=== PATIENT | male | born 1975 | race African-American/Black ===

== ENCOUNTER 2020-06-30 11:30 | Inpatient (IN) | payer OTHER ==
[~2020-06-30] VITALS: Ht 175.3 cm; Wt 87.5 kg
[2020-06-30] MEDS ORDERED: DiphenhydrAMINE HCL 50 MG/ML VIAL ONE (11:35)
[2020-06-30] MEDS ORDERED: HALOPERIDOL LACTATE 5 MG/ML VIAL ONE (11:35)
[2020-06-30] MEDS ORDERED: LORazepam 2 MG/ML VIAL ONE (11:35)
[2020-06-30] MEDS ORDERED: LORazepam 2 MG/ML VIAL IM ONE ×2 (11:45→14:15)
[2020-06-30] MEDS ORDERED: DiphenhydrAMINE HCL 50 MG/ML VIAL IM ONE (11:45)
[2020-06-30] MEDS ORDERED: HALOPERIDOL LACTATE 5 MG/ML VIAL IM ONE ×2 (11:45→14:15)
[2020-06-30 13:08] LABS: BASOPHILS % (AUTO) 0.3 % (0.0-2.0); EOSINOPHILS % (AUTO) 0.1 % (1.0-6.0); HEMATOCRIT 36.7 % (41-53); HEMOGLOBIN 11.6 g/dL (13.5-17.5); LYMPHOCYTES # (AUTO) 0.9 K/uL (1.0-4.8); LYMPHOCYTES % (AUTO) 9.6 % (22.0-44.0); MEAN CORPUSCULAR HEMOGLOBIN 23.2 pg (26.0-34.0); MEAN CORPUSCULAR HGB CONC 31.5 G/dL (31.0-37.0); MEAN CORPUSCULAR VOLUME 74 fL (80-100); MONOCYTES # (AUTO) 0.8 K/uL (0.1-1.0); MONOCYTES % (AUTO) 9.3 % (2.0-9.0); NEUTROPHILS # (AUTO) 7.4 K/uL (1.8-7.7); NEUTROPHILS % (AUTO) 80.7 % (40.0-70.0); PLATELET COUNT (AUTO) 172 K/uL (150-450); RED BLOOD CELL COUNT(AUTO) 4.99 MIL/uL (4.50-5.90); RED CELL DISTRIBUTION WIDTH 18.1 % (11.5-14.5)
[2020-06-30 13:17] LABS: ANION GAP 21 mmol/L (8-16); CALCIUM, TOTAL 9.8 mg/dL (8.8-10.5); CARBON DIOXIDE 20 mmol/L (22-29); CHLORIDE 102 mmol/L (98-107); CREATININE 1.66 mg/dL (0.60-1.30); GLOMERULAR FILTR. RATE CALC 55 mL/min (>60); GLUCOSE,RANDOM 103 mg/dL (70-110); POTASSIUM 3.1 mmol/L (3.5-5.1); SODIUM SERUM 143 mmol/L (136-145); UREA NITROGEN, BLOOD 22 mg/dL (7-18)
[2020-06-30 13:30] LABS: COVID AG,FIA SOURCE NASOPHARYNGEAL
[2020-06-30 13:42] LABS: ALANINE AMINOTRANSFERASE 39 U/L (12-78); ALBUMIN 4.8 g/dL (3.4-5.0); ALKALINE PHOSPHATASE 80 U/L (46-116); ASPARTATE AMINOTRANSFERASE 117 U/L (15-37); BILIRUBIN,TOTAL 1.2 mg/dL (0.1-1.0); TOTAL PROTEIN, SERUM 8.9 g/dL (6.4-8.2)
[2020-06-30 13:43] LABS: CREATINE KINASE, TOTAL ONLY 1812 U/L (39-308)
[2020-06-30] MEDS ORDERED: SODIUM CHLORIDE 0.9% 2,000 ML IV ONE (14:00)
[2020-06-30] MEDS ORDERED: POTASSIUM CHLORIDE 10% 40 MEQ/30 ML LIQUID UDCUP PO ONE (14:00)
[2020-06-30] MEDS ORDERED: ONDANSETRON HCL 4 MG/2 ML VIAL IVP PRN ×2 (14:15→15:15)
[2020-06-30] MEDS ORDERED: ACETAMINOPHEN 325 MG TABLET PO PRN ×2 (14:15→15:15)
[2020-06-30] MEDS ORDERED: 0.9% SODIUM CHLORIDE 10 ML SYRINGE IVP PRN ×2 (14:15→15:15)
[2020-06-30] MEDS: FOLIC ACID 1 MG TABLET PO SCH (15:00)
[2020-06-30] MEDS: MULTIVITAMINS WITH IRON TABLET PO SCH (15:00)
[2020-06-30] MEDS: THIAMINE 100 MG TABLET PO SCH (15:00)
[2020-06-30] MEDS ORDERED: IPRATROPIUM BROMIDE 0.5 MG/2.5 ML NEB SOLUTION NEB PRN (15:15)
[2020-06-30] MEDS ORDERED: ALBUTEROL SULFATE 2.5 MG/0.5 ML NEB SOLUTION NEB PRN (15:15)
[2020-06-30] MEDS ORDERED: BISACODYL 10 MG RECTAL RECTAL SUPPOSITORY PR PRN (15:15)
[2020-06-30] MEDS: PANTOPRAZOLE SODIUM 40 MG DR TABLET PO SCH (15:15)
[2020-06-30] MEDS ORDERED: DOCUSATE SODIUM 100 MG CAPSULE PO PRN (15:15)
[2020-06-30] MEDS: SODIUM CHLORIDE 0.9% 1,000 ML IV SCH (17:06)
[2020-06-30 18:29] VITALS: BP 123/74
[2020-06-30 19:47] VITALS: BP 149/76
[2020-06-30 20:49] LABS: % IRON SATURATION 17.5 % (30-44)
[2020-06-30] MEDS ORDERED: RisperiDONE 1 MG TABLET PO ONE (21:00)
[2020-07-01 00:34] VITALS: BP 107/60
[2020-07-01] MEDS: SODIUM CHLORIDE 0.9% 1,000 ML IV SCH ×3 (03:40→19:01)
[2020-07-01 05:44] VITALS: BP 116/58
[2020-07-01 07:49] LABS: BASOPHILS % (AUTO) 0.2 % (0.0-2.0); EOSINOPHILS % (AUTO) 4.2 % (1.0-6.0); HEMOGLOBIN 9.6 g/dL (13.5-17.5); LYMPHOCYTES # (AUTO) 1.5 K/uL (1.0-4.8); LYMPHOCYTES % (AUTO) 29.4 % (22.0-44.0); MEAN CORPUSCULAR HEMOGLOBIN 23.4 pg (26.0-34.0); MEAN CORPUSCULAR VOLUME 76 fL (80-100); MONOCYTES # (AUTO) 0.5 K/uL (0.1-1.0); MONOCYTES % (AUTO) 10.1 % (2.0-9.0); NEUTROPHILS # (AUTO) 2.9 K/uL (1.8-7.7); NEUTROPHILS % (AUTO) 56.1 % (40.0-70.0); PLATELET COUNT (AUTO) 132 K/uL (150-450); RED BLOOD CELL COUNT(AUTO) 4.11 MIL/uL (4.50-5.90); RED CELL DISTRIBUTION WIDTH 18.6 % (11.5-14.5)
[2020-07-01 07:59] VITALS: BP 114/63
[2020-07-01 08:38] LABS: ALANINE AMINOTRANSFERASE 40 U/L (12-78); ALBUMIN 3.4 g/dL (3.4-5.0); ALKALINE PHOSPHATASE 63 U/L (46-116); ANION GAP 13 mmol/L (8-16); ASPARTATE AMINOTRANSFERASE 135 U/L (15-37); CALCIUM, TOTAL 8.2 mg/dL (8.8-10.5); CARBON DIOXIDE 21 mmol/L (22-29); CHLORIDE 110 mmol/L (98-107); CREATININE 1.03 mg/dL (0.60-1.30); GLOMERULAR FILTR. RATE CALC > 60 mL/min (>60); GLUCOSE,RANDOM 75 mg/dL (70-110); POTASSIUM 3.8 mmol/L (3.5-5.1); SODIUM SERUM 144 mmol/L (136-145); TOTAL PROTEIN, SERUM 6.7 g/dL (6.4-8.2); UREA NITROGEN, BLOOD 14 mg/dL (7-18)
[2020-07-01 08:39] LABS: CREATINE KINASE, TOTAL ONLY 1899 U/L (39-308)
[2020-07-01] MEDS: THIAMINE 100 MG TABLET PO SCH (09:14)
[2020-07-01] MEDS: PANTOPRAZOLE SODIUM 40 MG DR TABLET PO SCH (09:14)
[2020-07-01] MEDS: FOLIC ACID 1 MG TABLET PO SCH (09:14)
[2020-07-01] MEDS: MULTIVITAMINS WITH IRON TABLET PO SCH (09:14)
[2020-07-01] MEDS: FERROUS SULFATE 325 MG EC TABLET PO SCH ×2 (13:49→17:53)
[2020-07-01 16:34] VITALS: BP 107/56
[2020-07-01] MEDS: ARIPiprazole 15 MG TABLET PO SCH (16:55)
[2020-07-01 19:29] VITALS: BP 96/54
[2020-07-01] MEDS: RisperiDONE 2 MG TABLET PO SCH (20:41)
[2020-07-01] MEDS: DOCUSATE SODIUM 100 MG CAPSULE PO SCH ×2 (20:41→20:44)
[2020-07-01 22:25] LABS: APPEARANCE,URINE CLEAR (CLEAR); BILIRUBIN,URINE NEGATIVE (NEGATIVE); GLUCOSE, URINE (UA) NEGATIVE (NEGATIVE); KETONES,URINE 15 mg/dL (NEGATIVE); LEUKOCYTE ESTERASE ,URINE NEGATIVE (NEGATIVE); NITRATE,URINE NEGATIVE (NEGATIVE); OCCULT BLOOD,URINE NEGATIVE (NEGATIVE); PH,URINE 5.5 (5.0-8.0); PROTEIN,URINE POS 1+ (NEGATIVE); UROBILINOGEN,URINE 0.2 mg/dL (<=1.0)
[2020-07-01 22:36] LABS: AMPHET/METH SCREEN,URINE POSITIVE (NEGATIVE); BARBITURATE SCREEN, URINE NEGATIVE (NEGATIVE); BENZODIAZEPINES SCREEN,URINE NEGATIVE (NEGATIVE); CANNABINOID SCREEN,URINE POSITIVE (NEGATIVE); COCAINE SCREEN,URINE NEGATIVE (NEGATIVE); METHADONE SCREEN, URINE NEGATIVE (NEGATIVE); OPIATE SCREEN,URINE NEGATIVE (NEGATIVE); PHENCYCLIDINE SCREEN,URINE NEGATIVE (NEGATIVE)
[2020-07-01 22:46] LABS: BACTERIA,URINE None Seen /HPF (None Seen); CALCIUM OXALATE CRYSTALS,UR Rare /LPF (None Seen); RBC,URINE None Seen /HPF (0-2); SQUAMOUS EPITHELIAL CELL,UR Rare /LPF (None Seen); WBC,URINE 0-2 /HPF (0-5)
[2020-07-01 23:40] VITALS: BP 115/53
[2020-07-02] MEDS: SODIUM CHLORIDE 0.9% 1,000 ML IV SCH ×2 (03:01→20:26)
[2020-07-02 03:53] VITALS: BP 119/67
[2020-07-02 07:33] VITALS: BP 116/76
[2020-07-02] MEDS: FOLIC ACID 1 MG TABLET PO SCH (07:41)
[2020-07-02] MEDS: THIAMINE 100 MG TABLET PO SCH (07:41)
[2020-07-02] MEDS: ARIPiprazole 15 MG TABLET PO SCH (07:41)
[2020-07-02] MEDS: DOCUSATE SODIUM 100 MG CAPSULE PO SCH ×2 (07:41→20:26)
[2020-07-02] MEDS: MULTIVITAMINS WITH IRON TABLET PO SCH (07:41)
[2020-07-02] MEDS: PANTOPRAZOLE SODIUM 40 MG DR TABLET PO SCH (07:41)
[2020-07-02] MEDS: FERROUS SULFATE 325 MG EC TABLET PO SCH (07:42)
[2020-07-02 10:37] LABS: BASOPHILS % (AUTO) 0.4 % (0.0-2.0); EOSINOPHILS % (AUTO) 5.1 % (1.0-6.0); HEMATOCRIT 32.2 % (41-53); LYMPHOCYTES # (AUTO) 1.5 K/uL (1.0-4.8); LYMPHOCYTES % (AUTO) 26.2 % (22.0-44.0); MEAN CORPUSCULAR HEMOGLOBIN 23.2 pg (26.0-34.0); MEAN CORPUSCULAR HGB CONC 30.9 G/dL (31.0-37.0); MEAN CORPUSCULAR VOLUME 75 fL (80-100); MONOCYTES # (AUTO) 0.5 K/uL (0.1-1.0); MONOCYTES % (AUTO) 8.6 % (2.0-9.0); NEUTROPHILS # (AUTO) 3.5 K/uL (1.8-7.7); NEUTROPHILS % (AUTO) 59.7 % (40.0-70.0); PLATELET COUNT (AUTO) 146 K/uL (150-450); RED BLOOD CELL COUNT(AUTO) 4.29 MIL/uL (4.50-5.90); RED CELL DISTRIBUTION WIDTH 18.5 % (11.5-14.5)
[2020-07-02 11:10] LABS: ALANINE AMINOTRANSFERASE 44 U/L (12-78); ALBUMIN 3.4 g/dL (3.4-5.0); ALKALINE PHOSPHATASE 66 U/L (46-116); ANION GAP 8 mmol/L (8-16); ASPARTATE AMINOTRANSFERASE 102 U/L (15-37); BILIRUBIN,TOTAL 0.4 mg/dL (0.1-1.0); CALCIUM, TOTAL 8.9 mg/dL (8.8-10.5); CARBON DIOXIDE 26 mmol/L (22-29); CHLORIDE 108 mmol/L (98-107); CREATININE 1.06 mg/dL (0.60-1.30); GLOMERULAR FILTR. RATE CALC > 60 mL/min (>60); GLUCOSE,RANDOM 98 mg/dL (70-110); POTASSIUM 3.9 mmol/L (3.5-5.1); SODIUM SERUM 142 mmol/L (136-145); TOTAL PROTEIN, SERUM 6.8 g/dL (6.4-8.2); UREA NITROGEN, BLOOD 8 mg/dL (7-18)
[2020-07-02 11:11] LABS: CREATINE KINASE, TOTAL ONLY 1230 U/L (39-308)
[2020-07-02 16:54] VITALS: BP 135/85
[2020-07-02 20:00] VITALS: BP 120/79
[2020-07-02] MEDS: RisperiDONE 2 MG TABLET PO SCH (20:26)
[2020-07-03] VITALS: BP 134/76
[2020-07-03 05:00] VITALS: BP 137/83
[2020-07-03] MEDS: SODIUM CHLORIDE 0.9% 1,000 ML IV SCH ×2 (06:35→11:01)
[2020-07-03 06:55] LABS: BASOPHILS % (AUTO) 0.5 % (0.0-2.0); EOSINOPHILS % (AUTO) 8.4 % (1.0-6.0); HEMATOCRIT 30.5 % (41-53); HEMOGLOBIN 9.4 g/dL (13.5-17.5); LYMPHOCYTES # (AUTO) 1.9 K/uL (1.0-4.8); LYMPHOCYTES % (AUTO) 43.5 % (22.0-44.0); MEAN CORPUSCULAR HEMOGLOBIN 23.6 pg (26.0-34.0); MEAN CORPUSCULAR VOLUME 76 fL (80-100); MONOCYTES # (AUTO) 0.4 K/uL (0.1-1.0); MONOCYTES % (AUTO) 9.8 % (2.0-9.0); NEUTROPHILS # (AUTO) 1.7 K/uL (1.8-7.7); NEUTROPHILS % (AUTO) 37.8 % (40.0-70.0); PLATELET COUNT (AUTO) 136 K/uL (150-450); RED CELL DISTRIBUTION WIDTH 18.3 % (11.5-14.5)
[2020-07-03 07:23] VITALS: BP 128/76
[2020-07-03 07:47] LABS: ALANINE AMINOTRANSFERASE 42 U/L (12-78); ALBUMIN 3.1 g/dL (3.4-5.0); ALKALINE PHOSPHATASE 55 U/L (46-116); ANION GAP 9 mmol/L (8-16); ASPARTATE AMINOTRANSFERASE 64 U/L (15-37); BILIRUBIN,TOTAL 0.3 mg/dL (0.1-1.0); CALCIUM, TOTAL 8.5 mg/dL (8.8-10.5); CARBON DIOXIDE 25 mmol/L (22-29); CHLORIDE 104 mmol/L (98-107); CREATINE KINASE, TOTAL ONLY 755 U/L (39-308); GLOMERULAR FILTR. RATE CALC > 60 mL/min (>60); GLUCOSE,RANDOM 85 mg/dL (70-110); POTASSIUM 3.8 mmol/L (3.5-5.1); SODIUM SERUM 138 mmol/L (136-145); TOTAL PROTEIN, SERUM 6.4 g/dL (6.4-8.2); UREA NITROGEN, BLOOD 8 mg/dL (7-18)
[2020-07-03] MEDS: FERROUS SULFATE 325 MG EC TABLET PO SCH (08:23)
[2020-07-03] MEDS: PANTOPRAZOLE SODIUM 40 MG DR TABLET PO SCH (08:23)
[2020-07-03] MEDS: THIAMINE 100 MG TABLET PO SCH (08:23)
[2020-07-03] MEDS: MULTIVITAMINS WITH IRON TABLET PO SCH (08:23)
[2020-07-03] MEDS: FOLIC ACID 1 MG TABLET PO SCH (08:23)
[2020-07-03] MEDS: ARIPiprazole 15 MG TABLET PO SCH (08:23)
[2020-07-03] MEDS: DOCUSATE SODIUM 100 MG CAPSULE PO SCH (08:24)
[2020-07-03] MEDS ORDERED: THIA100T80 PO (11:34)
[2020-07-03] MEDS ORDERED: DOCU-270 PO (11:35)
[2020-07-03] MEDS ORDERED: FERR-89 PO (11:35)
[2020-07-03] MEDS ORDERED: ARIP15TA27 PO (11:35)
[2020-07-03] MEDS ORDERED: MULT-1203 PO (11:36)
[2020-07-03] MEDS ORDERED: FOLI-130 PO (11:36)
[2020-07-03] MEDS ORDERED: RISP2TAB45 PO (11:37)
[2020-08-26] MEDS ORDERED: ARIP15TA27 PO (09:32)
== END 2020-07-03 12:00 | disposition home or self-care (01) | DRG 52 ==
LOC: EMS 11:32 → 6N 15:04
PROVIDERS: ADMIT Internal Medicine; ATTEND Internal Medicine
DX: G93.40 Encephalopathy, unspecified (principal); F20.0 Paranoid schizophrenia; F15.10 Other stimulant abuse, uncomplicated; E87.6 Hypokalemia; E86.0 Dehydration; Z20.822 Contact with and (suspected) exposure to COVID-19; N17.9 Acute kidney failure, unspecified; M62.82 Rhabdomyolysis; D50.9 Iron deficiency anemia, unspecified; E87.2 Acidosis; F17.200 Nicotine dependence, unspecified, uncomplicated
CPT/HCPCS: 71045; 80053; 80074; 81001; 82140; 82270; 82271; 82550; 82728; 83540; 83550; 83605; 83880; 84145; 85025; 99291; G0378; G0480; J1200; J1630; J2060; J7030; 36415-L1; 36415-TC

== ENCOUNTER 2020-08-20 16:18 | Inpatient (IN) | payer MEDICAID ==
[~2020-08-20] VITALS: Ht 152.4 cm; Wt 78.6 kg
[~2020-08-20 16:18] MED LIST: ARIP15TA2 PO; DOCU-275 PO; FERR-89 PO; FOLI-130 PO; MULT-1203 PO; RISP2TAB45 PO; THIA100T80 PO
[2020-08-21] MEDS ORDERED: ZOLPIDEM TARTRATE 10 MG TABLET PO PRN (00:30)
[2020-08-21] MEDS ORDERED: HALOPERIDOL 5 MG TABLET PO PRN (00:30)
[2020-08-21] MEDS ORDERED: LORazepam 2 MG TABLET PO PRN (00:30)
[2020-08-21 01:41] VITALS: BP 119/46
[2020-08-21 08:18] VITALS: BP 137/90
[2020-08-21] MEDS: ARIPiprazole 15 MG TABLET PO SCH (12:24)
[2020-08-21] MEDS ORDERED: MAGNESIUM HYDROXIDE SUSPENSION 30 ML UDCUP PO PRN (15:30)
[2020-08-21] MEDS ORDERED: CloNIDine HCL 0.1 MG TABLET PO PRN (15:30)
[2020-08-21] MEDS ORDERED: PETROLATUM,WHITE 28 GM JELLY TP PRN (15:30)
[2020-08-21] MEDS ORDERED: IBUPROFEN 400 MG TABLET PO PRN (15:30)
[2020-08-21] MEDS ORDERED: ACETAMINOPHEN 325 MG TABLET PO PRN (15:30)
[2020-08-21] MEDS ORDERED: DOCUSATE SODIUM 100 MG CAPSULE PO PRN (15:30)
[2020-08-21] MEDS ORDERED: GuaiFENesin/D-METHORPHAN [SUGAR-FREE] 200-20MG/10 ML SYRUP UDCUP PO PRN (15:30)
[2020-08-21] MEDS ORDERED: ALBUTEROL SULFATE HFA 90 MCG/PUFF 8 GM INHALER IH PRN (15:30)
[2020-08-21] MEDS ORDERED: ONDANSETRON HCL 4 MG TABLET PO PRN (15:30)
[2020-08-21] MEDS ORDERED: NICOTINE 14 MG/24 HOUR PATCH TD PRN (15:30)
[2020-08-21] MEDS ORDERED: MAG HYDROX/AL HYDROX/SIMETH ES 30 ML SUSPENSION UDCUP PO PRN (15:30)
[2020-08-21] MEDS ORDERED: LOPERAMIDE HCL 2 MG CAPSULE PO PRN (15:30)
[2020-08-21 16:13] VITALS: BP 135/88
[2020-08-21] MEDS ORDERED: QUEtiapine FUMARATE 100 MG TABLET PO PRN (16:30)
[2020-08-21] MEDS: DOCUSATE SODIUM 100 MG CAPSULE PO SCH (16:39)
[2020-08-21] MEDS: FERROUS SULFATE 325 MG EC TABLET PO SCH (16:39)
[2020-08-21] MEDS ORDERED: LORazepam 2 MG/ML VIAL ONE (17:56)
[2020-08-21] MEDS ORDERED: ChlorproMAZINE HCL 50 MG/2 ML AMP ONE (17:57)
[2020-08-21] MEDS ORDERED: DiphenhydrAMINE HCL 50 MG/ML VIAL ONE (17:57)
[2020-08-21] MEDS ORDERED: ChlorproMAZINE HCL 50 MG/2 ML AMP IM ONE (18:00)
[2020-08-21] MEDS ORDERED: DiphenhydrAMINE HCL 50 MG/ML VIAL IM ONE (18:00)
[2020-08-21] MEDS ORDERED: LORazepam 2 MG/ML VIAL IM ONE (18:00)
[2020-08-22 02:14] VITALS: BP 134/83
[2020-08-22] MEDS: FERROUS SULFATE 325 MG EC TABLET PO SCH ×3 (07:13→16:45)
[2020-08-22] MEDS: ARIPiprazole 15 MG TABLET PO SCH (08:19)
[2020-08-22] MEDS: THIAMINE 100 MG TABLET PO SCH (08:19)
[2020-08-22] MEDS: FOLIC ACID 1 MG TABLET PO SCH (08:19)
[2020-08-22] MEDS: DOCUSATE SODIUM 100 MG CAPSULE PO SCH ×2 (08:19→16:45)
[2020-08-22 16:14] VITALS: BP 119/69
[2020-08-23 00:13] VITALS: BP 130/75
[2020-08-23] MEDS: FERROUS SULFATE 325 MG EC TABLET PO SCH ×3 (06:37→15:59)
[2020-08-23 08:11] VITALS: BP 131/75
[2020-08-23] MEDS: THIAMINE 100 MG TABLET PO SCH (08:22)
[2020-08-23] MEDS: DOCUSATE SODIUM 100 MG CAPSULE PO SCH ×2 (08:22→15:59)
[2020-08-23] MEDS: ARIPiprazole 15 MG TABLET PO SCH (08:22)
[2020-08-23] MEDS: FOLIC ACID 1 MG TABLET PO SCH (08:22)
[2020-08-23 16:38] VITALS: BP 109/80
[2020-08-24 06:23] VITALS: BP 121/72
[2020-08-24] MEDS: FERROUS SULFATE 325 MG EC TABLET PO SCH ×3 (06:43→16:37)
[2020-08-24 08:10] LABS: BASOPHILS % (AUTO) 0.5 % (0.0-2.0); EOSINOPHILS % (AUTO) 6.6 % (1.0-6.0); HEMATOCRIT 35.6 % (41-53); HEMOGLOBIN 11.2 g/dL (13.5-17.5); LYMPHOCYTES # (AUTO) 1.9 K/uL (1.0-4.8); LYMPHOCYTES % (AUTO) 40.1 % (22.0-44.0); MEAN CORPUSCULAR HEMOGLOBIN 24.5 pg (26.0-34.0); MEAN CORPUSCULAR HGB CONC 31.5 G/dL (31.0-37.0); MEAN CORPUSCULAR VOLUME 78 fL (80-100); MONOCYTES # (AUTO) 0.4 K/uL (0.1-1.0); MONOCYTES % (AUTO) 9.5 % (2.0-9.0); NEUTROPHILS % (AUTO) 43.3 % (40.0-70.0); PLATELET COUNT (AUTO) 142 K/uL (150-450); RED BLOOD CELL COUNT(AUTO) 4.57 MIL/uL (4.50-5.90); RED CELL DISTRIBUTION WIDTH 18.9 % (11.5-14.5)
[2020-08-24] MEDS: ARIPiprazole 15 MG TABLET PO SCH (08:14)
[2020-08-24] MEDS: FOLIC ACID 1 MG TABLET PO SCH (08:14)
[2020-08-24] MEDS: THIAMINE 100 MG TABLET PO SCH (08:14)
[2020-08-24] MEDS: DOCUSATE SODIUM 100 MG CAPSULE PO SCH ×2 (08:14→16:37)
[2020-08-24 08:15] VITALS: BP 108/60
[2020-08-24 08:23] LABS: HEMOGLOBIN A1C 5.4 % (3.8-5.6)
[2020-08-24 08:33] LABS: ALANINE AMINOTRANSFERASE 22 U/L (12-78); ALBUMIN 3.4 g/dL (3.4-5.0); ALKALINE PHOSPHATASE 67 U/L (46-116); ANION GAP 10 mmol/L (8-16); ASPARTATE AMINOTRANSFERASE 26 U/L (15-37); BILIRUBIN,TOTAL 0.3 mg/dL (0.1-1.0); CALCIUM, TOTAL 8.8 mg/dL (8.8-10.5); CARBON DIOXIDE 26 mmol/L (22-29); CHLORIDE 102 mmol/L (98-107); CHOL/HDL RATIO 5.2 (4.2-7.3); CHOLESTEROL 181 mg/dL (131-200); CREATININE 0.99 mg/dL (0.60-1.30); FREE T4 (FREE THYROXINE) 0.98 ng/dL (0.76-1.46); GLOMERULAR FILTR. RATE CALC > 60 mL/min (>60); GLUCOSE,RANDOM 96 mg/dL (70-110); HDL CHOLESTEROL 35 mg/dL (40-60); LDL CHOL (CALC.) 87 mg/dL (0-130); POTASSIUM 3.8 mmol/L (3.5-5.1); SODIUM SERUM 138 mmol/L (136-145); THYROID STIMULATING HORMONE 0.23 uIU/mL (0.36-3.74); TRIGLYCERIDES 295 mg/dL (15-150); UREA NITROGEN, BLOOD 13 mg/dL (7-18)
[2020-08-24 16:12] VITALS: BP 114/74
[2020-08-25 06:26] VITALS: BP 116/63
[2020-08-25] MEDS: FERROUS SULFATE 325 MG EC TABLET PO SCH ×3 (06:42→15:59)
[2020-08-25 08:32] LABS: % IRON SATURATION 20.2 % (30-44)
[2020-08-25] MEDS: THIAMINE 100 MG TABLET PO SCH (09:01)
[2020-08-25] MEDS: FOLIC ACID 1 MG TABLET PO SCH (09:01)
[2020-08-25] MEDS: ARIPiprazole 15 MG TABLET PO SCH (09:01)
[2020-08-25] MEDS: DOCUSATE SODIUM 100 MG CAPSULE PO SCH ×2 (09:01→15:59)
[2020-08-25 09:32] VITALS: BP 120/65
[2020-08-25 16:22] VITALS: BP 107/58
[2020-08-26 06:06] VITALS: BP 110/62
[2020-08-26] MEDS: FERROUS SULFATE 325 MG EC TABLET PO SCH ×2 (06:53→12:21)
[2020-08-26 08:07] LABS: COVID AG,FIA SOURCE NASOPHARYNGEAL
[2020-08-26] MEDS: ARIPiprazole 15 MG TABLET PO SCH (08:34)
[2020-08-26] MEDS: DOCUSATE SODIUM 100 MG CAPSULE PO SCH (08:34)
[2020-08-26] MEDS: THIAMINE 100 MG TABLET PO SCH (08:35)
[2020-08-26] MEDS: FOLIC ACID 1 MG TABLET PO SCH (08:35)
[2020-08-26 08:39] VITALS: BP 103/60
[2020-08-26] MEDS ORDERED: ARIP15TA2 PO (09:32)
== END 2020-08-26 13:30 | disposition home or self-care (01) | DRG 750 ==
LOC: B2S 08-21 00:34
DX: F25.1 Schizoaffective disorder, depressive type (principal); Z59.0 Homelessness; D64.9 Anemia, unspecified; E66.9 Obesity, unspecified; F15.10 Other stimulant abuse, uncomplicated; Z79.899 Other long term (current) drug therapy; Z91.5 Personal history of self-harm; Z20.822 Contact with and (suspected) exposure to COVID-19
CPT/HCPCS: 83036; 83540; 83550; 84439; 84443; 87426; J1200; J2060; J3230

== ENCOUNTER 2020-09-30 17:52 | Inpatient (IN) | payer MEDICAID, OTHER ==
[~2020-09-30] VITALS: Ht 180.3 cm; Wt 79.4 kg
[~2020-09-30 17:52] MED LIST changes: -ARIP15TA2 PO; +ARIP15TA27 PO; -DOCU-275 PO; -FOLI-130 PO; -MULT-1203 PO; -RISP2TAB45 PO
[2020-09-30 18:44] LABS: BASOPHILS % (AUTO) 0.3 % (0.0-2.0); EOSINOPHILS % (AUTO) 5.4 % (1.0-6.0); HEMATOCRIT 35.7 % (41-53); HEMOGLOBIN 11.2 g/dL (13.5-17.5); LYMPHOCYTES # (AUTO) 1.7 K/uL (1.0-4.8); LYMPHOCYTES % (AUTO) 36.6 % (22.0-44.0); MEAN CORPUSCULAR HEMOGLOBIN 24.9 pg (26.0-34.0); MEAN CORPUSCULAR HGB CONC 31.3 G/dL (31.0-37.0); MEAN CORPUSCULAR VOLUME 80 fL (80-100); MONOCYTES # (AUTO) 0.6 K/uL (0.1-1.0); MONOCYTES % (AUTO) 13.2 % (2.0-9.0); NEUTROPHILS # (AUTO) 2.1 K/uL (1.8-7.7); NEUTROPHILS % (AUTO) 44.5 % (40.0-70.0); PLATELET COUNT (AUTO) 150 K/uL (150-450)
[2020-09-30 18:53] LABS: ANION GAP 11 mmol/L (8-16); CALCIUM, TOTAL 8.8 mg/dL (8.8-10.5); CARBON DIOXIDE 26 mmol/L (22-29); CHLORIDE 99 mmol/L (98-107); CREATININE 1.47 mg/dL (0.60-1.30); GLOMERULAR FILTR. RATE CALC > 60 mL/min (>60); GLUCOSE,RANDOM 102 mg/dL (70-110); POTASSIUM 3.9 mmol/L (3.5-5.1); SODIUM SERUM 136 mmol/L (136-145); UREA NITROGEN, BLOOD 10 mg/dL (7-18)
[2020-09-30 18:58] LABS: ALANINE AMINOTRANSFERASE 57 U/L (12-78); ALBUMIN 3.7 g/dL (3.4-5.0); ALKALINE PHOSPHATASE 92 U/L (46-116); ASPARTATE AMINOTRANSFERASE 100 U/L (15-37); BILIRUBIN,TOTAL 0.8 mg/dL (0.1-1.0); TOTAL PROTEIN, SERUM 6.8 g/dL (6.4-8.2)
[2020-09-30 20:11] LABS: THYROID STIMULATING HORMONE 0.33 uIU/mL (0.36-3.74)
[2020-09-30] MEDS ORDERED: HALOPERIDOL 5 MG TABLET PO PRN (21:00)
[2020-09-30] MEDS ORDERED: ZOLPIDEM TARTRATE 10 MG TABLET PO PRN (21:00)
[2020-09-30] MEDS ORDERED: LORazepam 2 MG TABLET PO PRN (21:00)
[2020-09-30 21:51] LABS: COVID AG,FIA SOURCE NASOPHARYNGEAL
[2020-10-01 01:42] VITALS: BP 124/67
[2020-10-01] MEDS ORDERED: PNEUMOCOCCAL VACCINE POLYVALENT 0.5 ML VIAL [PPSV23] IM. ONE (02:00)
[2020-10-01] MEDS ORDERED: DOCUSATE SODIUM 100 MG CAPSULE PO PRN (07:30)
[2020-10-01] MEDS ORDERED: NICOTINE 14 MG/24 HOUR PATCH TD PRN (07:30)
[2020-10-01] MEDS ORDERED: MAGNESIUM HYDROXIDE SUSPENSION 30 ML UDCUP PO PRN (07:30)
[2020-10-01] MEDS ORDERED: ALBUTEROL SULFATE HFA 90 MCG/PUFF 8 GM INHALER IH PRN (07:30)
[2020-10-01] MEDS ORDERED: CloNIDine HCL 0.1 MG TABLET PO PRN (07:30)
[2020-10-01] MEDS ORDERED: PETROLATUM,WHITE 28 GM JELLY TP PRN (07:30)
[2020-10-01] MEDS ORDERED: MAG HYDROX/AL HYDROX/SIMETH ES 30 ML SUSPENSION UDCUP PO PRN (07:30)
[2020-10-01] MEDS ORDERED: ONDANSETRON HCL 4 MG TABLET PO PRN (07:30)
[2020-10-01] MEDS ORDERED: GuaiFENesin/D-METHORPHAN [SUGAR-FREE] 200-20MG/10 ML SYRUP UDCUP PO PRN (07:30)
[2020-10-01] MEDS ORDERED: IBUPROFEN 400 MG TABLET PO PRN (07:30)
[2020-10-01] MEDS ORDERED: ACETAMINOPHEN 325 MG TABLET PO PRN (07:30)
[2020-10-01] MEDS ORDERED: LOPERAMIDE HCL 2 MG CAPSULE PO PRN (07:30)
[2020-10-01 08:37] VITALS: BP 141/75
[2020-10-01] MEDS: THIAMINE 100 MG TABLET PO SCH (09:29)
[2020-10-01] MEDS: FERROUS SULFATE 325 MG EC TABLET PO SCH ×2 (11:30→16:59)
[2020-10-01] MEDS: ARIPiprazole 15 MG TABLET PO SCH (13:16)
[2020-10-01 16:12] VITALS: BP 139/83
[2020-10-02 00:46] VITALS: BP 129/71
[2020-10-02] MEDS: FERROUS SULFATE 325 MG EC TABLET PO SCH ×3 (06:37→17:05)
[2020-10-02 07:16] LABS: CHOL/HDL RATIO 4.1 (4.2-7.3)
[2020-10-02 08:07] LABS: HIV 1-2 SCREEN 4TH GEN W/RFLX Non Reactive (Non Reactive)
[2020-10-02 08:11] VITALS: BP 101/51
[2020-10-02] MEDS: THIAMINE 100 MG TABLET PO SCH (08:12)
[2020-10-02] MEDS: ARIPiprazole 15 MG TABLET PO SCH (08:12)
[2020-10-02 16:14] VITALS: BP 122/69
[2020-10-03 00:20] VITALS: BP 118/71
[2020-10-03] MEDS: FERROUS SULFATE 325 MG EC TABLET PO SCH ×3 (06:19→17:09)
[2020-10-03] MEDS: THIAMINE 100 MG TABLET PO SCH (08:14)
[2020-10-03] MEDS: ARIPiprazole 15 MG TABLET PO SCH (08:15)
[2020-10-03 08:23] VITALS: BP 116/65
[2020-10-03] MEDS ORDERED: BuPROPion HCL XL 150 MG ER TABLET PO SCH ×2 (09:10→20:00)
[2020-10-03 16:40] VITALS: BP 106/54
[2020-10-03] MEDS: BuPROPion HCL XL 150 MG ER TABLET PO SCH (17:09)
[2020-10-04 00:53] VITALS: BP 124/68
[2020-10-04] MEDS: FERROUS SULFATE 325 MG EC TABLET PO SCH ×3 (06:51→16:46)
[2020-10-04] MEDS: ARIPiprazole 15 MG TABLET PO SCH (08:20)
[2020-10-04] MEDS: BuPROPion HCL XL 150 MG ER TABLET PO SCH (08:20)
[2020-10-04] MEDS: THIAMINE 100 MG TABLET PO SCH (08:20)
[2020-10-04 08:24] VITALS: BP 122/71
[2020-10-04 16:12] VITALS: BP 118/71
[2020-10-05 01:10] VITALS: BP 136/80
[2020-10-05] MEDS: FERROUS SULFATE 325 MG EC TABLET PO SCH ×3 (06:35→16:19)
[2020-10-05 08:15] VITALS: BP 116/70
[2020-10-05] MEDS: BuPROPion HCL XL 150 MG ER TABLET PO SCH (08:44)
[2020-10-05] MEDS: THIAMINE 100 MG TABLET PO SCH (08:44)
[2020-10-05] MEDS: ARIPiprazole 15 MG TABLET PO SCH (08:44)
[2020-10-05 16:17] VITALS: BP 118/72
[2020-10-06 06:30] VITALS: BP 80/50
[2020-10-06] MEDS: FERROUS SULFATE 325 MG EC TABLET PO SCH ×3 (06:43→16:22)
[2020-10-06 08:17] VITALS: BP 109/56
[2020-10-06 08:20] LABS: COVID AG,FIA SOURCE NASOPHARYNGEAL
[2020-10-06] MEDS: BuPROPion HCL XL 150 MG ER TABLET PO SCH (09:09)
[2020-10-06] MEDS: ARIPiprazole 15 MG TABLET PO SCH (09:09)
[2020-10-06] MEDS: THIAMINE 100 MG TABLET PO SCH (09:09)
[2020-10-06 17:04] VITALS: BP 118/68
[2020-10-07 01:50] VITALS: BP 115/80
[2020-10-07] MEDS: FERROUS SULFATE 325 MG EC TABLET PO SCH ×3 (06:33→16:59)
[2020-10-07 08:34] VITALS: BP 113/69
[2020-10-07] MEDS: BuPROPion HCL XL 150 MG ER TABLET PO SCH (09:07)
[2020-10-07] MEDS: ARIPiprazole 15 MG TABLET PO SCH (09:07)
[2020-10-07] MEDS: THIAMINE 100 MG TABLET PO SCH (09:07)
[2020-10-07 16:39] VITALS: BP 105/68
[2020-10-08] MEDS: FERROUS SULFATE 325 MG EC TABLET PO SCH ×3 (06:55→16:53)
[2020-10-08 06:57] VITALS: BP 115/14
[2020-10-08 08:19] LABS: ANION GAP 10 mmol/L (8-16); CARBON DIOXIDE 25 mmol/L (22-29); CHLORIDE 101 mmol/L (98-107); CREATININE 1.13 mg/dL (0.60-1.30); GLOMERULAR FILTR. RATE CALC > 60 mL/min (>60); GLUCOSE,RANDOM 93 mg/dL (70-110); POTASSIUM 4.8 mmol/L (3.5-5.1); SODIUM SERUM 136 mmol/L (136-145); UREA NITROGEN, BLOOD 12 mg/dL (7-18)
[2020-10-08] MEDS: OMEGA-3/DHA/EPA/FISH OIL 1,000 MG CAPSULE PO SCH (08:49)
[2020-10-08] MEDS: THIAMINE 100 MG TABLET PO SCH (08:49)
[2020-10-08] MEDS: BuPROPion HCL XL 150 MG ER TABLET PO SCH (08:49)
[2020-10-08] MEDS: ARIPiprazole 15 MG TABLET PO SCH (08:49)
[2020-10-08 08:54] VITALS: BP 107/62
[2020-10-08 16:28] VITALS: BP 116/68
[2020-10-09 05:32] VITALS: BP 111/68
[2020-10-09] MEDS: FERROUS SULFATE 325 MG EC TABLET PO SCH ×3 (06:28→16:33)
[2020-10-09] MEDS: OMEGA-3/DHA/EPA/FISH OIL 1,000 MG CAPSULE PO SCH (08:25)
[2020-10-09] MEDS: THIAMINE 100 MG TABLET PO SCH (08:25)
[2020-10-09] MEDS: ARIPiprazole 15 MG TABLET PO SCH (08:25)
[2020-10-09] MEDS: BuPROPion HCL XL 150 MG ER TABLET PO SCH (08:25)
[2020-10-09 08:58] VITALS: BP 112/74
[2020-10-09 16:20] VITALS: BP 129/66
[2020-10-10 02:03] VITALS: BP 114/69
[2020-10-10] MEDS: FERROUS SULFATE 325 MG EC TABLET PO SCH ×2 (06:35→12:52)
[2020-10-10] MEDS: THIAMINE 100 MG TABLET PO SCH (08:24)
[2020-10-10] MEDS: OMEGA-3/DHA/EPA/FISH OIL 1,000 MG CAPSULE PO SCH (08:24)
[2020-10-10] MEDS: BuPROPion HCL XL 150 MG ER TABLET PO SCH (08:24)
[2020-10-10] MEDS: ARIPiprazole 15 MG TABLET PO SCH (08:24)
[2020-10-10 08:32] VITALS: BP 124/65
[2020-10-10] MEDS ORDERED: BUPR-93 PO (10:35)
== END 2020-10-10 13:42 | disposition home or self-care (01) | DRG 750 ==
LOC: EMS 17:54 → B2S 20:55
PROVIDERS: ADMIT Psychiatry & Neurology Psychiatry; ATTEND Psychiatry & Neurology Psychiatry
DX: F25.1 Schizoaffective disorder, depressive type (principal); N17.9 Acute kidney failure, unspecified; E86.0 Dehydration; F43.10 Post-traumatic stress disorder, unspecified; D64.9 Anemia, unspecified; E78.5 Hyperlipidemia, unspecified; Z20.822 Contact with and (suspected) exposure to COVID-19
CPT/HCPCS: 80048; 80053; 80061; 84439; 84443; 85025; 87389; 87426; 99285; G0480